=== PATIENT | male | born 1975 | race Caucasian/White ===

== ENCOUNTER 2023-08-15 01:06 | Emergency (ER) | payer MEDICAID ==
[~2023-08-15] VITALS: Ht 185.4 cm; Wt 83.1 kg
[2023-08-15 01:18] VITALS: BP 132/84; PULSE 79; RESP 18; TEMP 96.8; O2SAT 99
[2023-08-15] MEDS ORDERED: cefTRIAXone 1,000 MG VIAL ONE (03:38)
[2023-08-15] MEDS ORDERED: LIDOCAINE MPF 1% 5 ML ONE (03:38)
[2023-08-15] MEDS: cefTRIAXone 1,000 MG in LIDOCAINE MPF 1% 2.1 ML IM ONE (03:49)
[2023-08-15] MEDS ORDERED: SULF-59 PO (05:04)
[2023-08-15] MEDS ORDERED: CEPH-588 PO (05:04)
== END 2023-08-15 05:25 | disposition home or self-care (01) ==
LOC: MED 01:06
DX: L03.115 Cellulitis of right lower limb (principal); Z79.2 Long term (current) use of antibiotics; Z79.899 Other long term (current) drug therapy
CPT/HCPCS: 96372; 99283; J0696; J2001